=== PATIENT | female | born 1970 ===

== ENCOUNTER 2022-02-26 06:32 | Day surgery (SDC) | payer OTHER ==
[2022-02-21 12:03] LABS: Absolute Lymphocytes (CBC) 1.6 K/uL (0.7-4.9); Hematocrit 41.4 % (36.0-45.0); Lymphocytes % 24.1 % (15.3-44.8); MCV 97.2 fL (80-100); MPV 7.3 fL (7.6-11.3); RBC Red Blood Cell Count 4.26 M/uL (3.86-4.86)
[2022-02-21 12:11] LABS: Specific Gravity 1.015 (1.005-1.030); Urine Bilirubin NEGATIVE (Negative); Urine Blood Negative (Negative); Urine Clarity Clear (Clear); Urine Color Light-Yellow (Yellow); Urine Glucose NEGATIVE (Negative); Urine Protein NEGATIVE (Negative); Urine Urobilinogen Normal (Normal)
[2022-02-21 12:17] LABS: Potassium 3.8 mmol/L (3.5-5.1)
--- NOTE | 2022-02-21 12:17 | RAD REPORT ---
EXAM DESCRIPTION: Maryjo Ott (2 Views)02/21/2022 12:05 pm CLINICAL HISTORY: Preop for foot surgery. Hypertension COMPARISON: 2011 FINDINGS: The lungs appear clear of acute infiltrate. The heart is normal size IMPRESSION: No acute abnormalities displayed
--- NOTE | 2022-02-22 15:59 | EKG ---
Test Date: 2022-02-21 Test Time: 11:35:09 Erp Programmer: RUSSELL MEASUREMENT RESULTS: Intervals: Rate: 65 [place]: 142 QRSD: 78 QT: 416 QTc: 432 [place]: P: 27 [place]: 142 QRS: -21 T: 44 INTERPRETIVE STATEMENTS: Normal sinus rhythm Low voltage QRS Inferior infarct, age undetermined Cannot rule out Anterior infarct, age undetermined Abnormal ECG No previous ECG available for comparison Electronically Signed On 02-22-22 15:58:02 UI PROGRAMMER by Bethel Mancera
--- NOTE | 2022-02-25 12:00 | PREOPHP ---
Date of Admission: 02/26/2022 History Of Present Illness: This patient presented to my office with a chief complaint of a painful right big toe joint present for many months, throbbing in nature, moderate in severity, worse with ac tivity, improve with rest. The patient has modified her shoe gear, taken anti-inflammatories. The p atient has pain with or without shoe gear. The patient requests surgical management. Past Medical History: Includes hypertension, obesity, GERD, diverticulitis, thyroid disease. Current Medications: Include [place] Thyroid 90 mg, omeprazole 40 mg, clonazepam 0.5 mg, lisinopril 1 0 mg, hydrochlorothiazide 12.5 mg. Allergies: NKDA. Social History: Patient denies tobacco, minimal alcohol use. No IV drug use. Past Surgical History: Includes laparoscopic gastric banding, surgery to right ankle trauma, and div erticulitis procedures. Physical Examination: Vital Signs: The patient's weight 210 pounds, height 5 feet 6 inches. General Appearance: The patient is healthy, well developed, well nourished, well oriented x3. Vascular: Evaluation reveals dorsalis pedis and posterior tibial pulses to be 4/4 bilaterally. Capi llary refill time is less than 3 seconds to all toes. Temperature gradient is within normal limits. There is no claudication complaint, varicosities, or signs of DVT present bilaterally. There is +2 pitting edema of the right leg at the ankle and foot area. Musculoskeletal: Evaluation reveals semiflexible cavus foot deformity bilaterally. Subtalar joint s hows normal position bilaterally. There is forefoot supinatus with adductus bilaterally. There is m edial eminence of the first metatarsal head with range of motion to 80 degrees, right worse than the left, as far as medial eminence. There is hallux valgus noted bilaterally. Equinus is noted to be - 10 degrees right per goniometer measurement and 0 on the left per goniometer measurement. Lesser dig its are in normal alignment. Muscle knee and ankle assessment are in normal alignment, muscle streng th, and range of motion. There is no tenderness of the plantar fascia. No subcutaneous soft tissue masses are noted bilaterally. Skin: Evaluation reveals no rash, ulcer, tumor, or contracture bilaterally. Neurologic: Evaluation reveals deep tendon reflexes of the patella and Achilles to be 5/5 bilaterall y. Vibratory and sharp dull sensation within normal limits. Imaging: X-ray evaluation of the right foot shows bones well mineralized. No fractures are noted. There is inferior calcaneal spur present. There is a lateral deviation of the hallux and sesamoids w ith an increase in the intermetatarsal angle. The intermetatarsal angle is 12 degrees. Hallux abduc t angle is 19 degrees. Splay foot type is noted bilaterally with a short 1st and 5th metatarsal. Diagnoses: Hallux valgus, right foot, pain in right foot, congenital metatarsus adductus right foot. Recommendations: The recommended treatment is for a bunionectomy with first metatarsal osteotomy at the head and fixation will be used. The patient has been made aware of COVID-19 risk present in the community. Recommendations to follow CDC guidelines to prevent infection postoperatively which will complicate healing and increased risk of blood clots. The patient is dispensed a postoperative shoe for use after surgery. The patient has been educated on the use of cold therapy unit. Preop labs cummings ve been ordered. The patient understands risks, benefits, and alternatives of the above-mentioned pr ocedure including, but not limited to the risk of pain, swelling, numbness, stiffness, infection, non healing of skin or soft tissue, bone, recurrence of the deformity and/or need to remove fixation due to loosening. The patient is scheduled for surgery at [facility] on February 26, 2022. Preop labs have been ordered. Medical H and P will be completed by Anesthesia. The patient has been also dispensed a seal tight to keep the bandage dry postoperatively. RACHAEL/GLADIS Voice ID: [id number]
[2022-02-26] MEDS ORDERED: CEFAZOLIN SODIUM 1 GM/VIAL ONE (06:55)
[2022-02-26] MEDS ORDERED: Ringers Lactate 1,000 ML IV ONE (06:55)
[2022-02-26] MEDS ORDERED: MIDAZOLAM HCL 2 MG/2 ML INJ ONE (07:12)
[2022-02-26] MEDS ORDERED: propofoL 200 MG/20 ML VIAL IV ONE (07:12)
[2022-02-26] MEDS ORDERED: FENTANYL CITR 100 MCG/2 ML ONE ×2 (07:13→08:55)
[2022-02-26] MEDS ORDERED: LIDOCAINE 1% MPF 5 ML VIAL ONE (07:13)
[2022-02-26] MEDS ORDERED: KETOROLAC 30 MG/ML INJ ONE (07:37)
[2022-02-26] MEDS ORDERED: ONDANSETRON 4 MG/2 ML VIAL ONE (07:38)
[2022-02-26] MEDS: LIDOCAINE 1% MPF 30 ML VIAL ONE ×2 (07:59→08:00)
[2022-02-26] MEDS ORDERED: EPHEDRINE SULF 50 MG/ML VIAL ONE (08:17)
[2022-02-26 09:35] VITALS: O2SAT 99
[2022-02-26] MEDS ORDERED: HYDROCODONE/APAP 10/325 TAB ONE (10:04)
--- NOTE | 2022-02-26 10:27 | RAD REPORT ---
EXAM DESCRIPTION: RAD - Foot Right 2 View - 02/26/2022 9:29 am CLINICAL HISTORY: S/P BUNIONECTOMY COMPARISON: No comparisons FINDINGS: Postsurgical changes of a bunionectomy are noted first metatarsal head with a small screw present. Small posterior and moderate plantar calcaneal spur. Mild soft tissue swelling anteriorly.
[2022-02-26 10:35] VITALS: BP 97/58; TEMP 97.6
--- NOTE | 2022-02-26 19:15 | OP ---
Date of Procedure: 02/26/2022 Surgeon: Fili Gardner DPM Preoperative Diagnosis: Hallux valgus deformity, right foot. Postoperative Diagnosis: Hallux valgus deformity, right foot. Procedure: Bunionectomy with first metatarsal head osteotomy and 16 mm screw fixation. Anesthesia: Via local infiltration. Procedure In Detail: Patient was brought into the operating room, placed on the operating room table in supine position. Once adequate IV sedation was obtained, the patient was injected with a total o f 10 cc of 0.5% Marcaine plain. The patient was prepped and draped in usual sterile manner and the r ight extremity was elevated, Esmarch bandage was applied to exsanguinate the blood supply. Pneumatic ankle tourniquet was inflated to 250 mmHg and the Esmarch was removed. Procedure: Attention was then directed to the first MPJ of the right foot where a 5 cm dorsal linear incision was made overlying the first MPJ. The incision was deepened via sharp and blunt dissection down to the level of capsule. All neurologic structures were avoided. All bleeders were clamped an d bovied. An inverted L incision was made in the capsule of the first MPJ, dissected free from its b mann attachments. Upon doing this, a tophus was removed from the capsular tissue. No degeneration of the bone or cartilage was noted. The capsular tissue was freed from its bony attachments utilizing sharp dissection. The medial eminence was brought into view and resected utilizing an oscillating sa w. The first interspace was then approached and a lateral capsulotomy adducted tenotomy was performe d. The foot was then repositioned with the knee bent and an osteotomy was created in the head of the first metatarsal with the apex distal and the arms proximal in a V-shaped fashion. Utilizing the os cillating saw from medial to lateral, the osteotomy was performed and shifted laterally and impacted medially upon the shaft of the first metatarsal. The head was then fixated to the shaft utilizing a K-wire fixation temporarily utilizing the DJO headless screw set. The cannulated drill was then util ized down to the plantar cartilage, but not through. It was then measured 16 mm and then a countersi nk was then used to countersink the dorsal cortex. The screw was then placed over the wire utilizing the cannulated system and screwed into place, flushed to the bone. Excellent compression was seen i n bony position. The remaining medial eminence was removed utilizing the oscillating saw and smoothe d utilizing a rasp. All layers were flushed with copious amounts of sterile saline. A medial capsul orrhaphy was then performed with the toe held in a corrected position. Area was then flushed again a nd capsular tissue was reapproximated utilizing 2-0 Vicryl suture. Skin was then reapproximated util izing 4-0 Prolene horizontal mattress suture. The toe seemed to be in excellent rectus position with a range of motion to 80 degrees. The foot was then dressed with Adaptic, dry sterile gauze, dry jay rile Sheng, Kerlix, and cold therapy unit. The tourniquet was then released and capillary return was seen to be instantaneous to all digits. The patient was sent to recovery in satisfactory condition. RACHAEL/GLADIS Voice ID: [id number] Report ID: [id number]
--- NOTE | 2022-02-26 19:24 | DS ---
Date Of Surgery: 02/26/2022. Surgeon: Fili Gardner DPM Preoperative Diagnosis: Hallux valgus deformity, right foot. Postoperative Diagnosis: Hallux valgus deformity, right foot. Procedure: Bunionectomy with first metatarsal head osteotomy and screw fixation, 16 mm DJO headless screw. Hospital Course: The patient tolerated the procedure and anesthesia well. The patient was sent to [facility] in satisfactory condition and will be discharged per anesthesia guidelines from same-day surg shashank. Patient has been given a cold therapy unit with written postop instructions as well as full i tten postop instructions and emergency phone number. The patient has pain medication for postoperati ve discomfort. The patient will be followed in my office in 1 week for postoperative care. The yina ent may ambulate in a postop shoe, per instructions, a propulsive gait on the right foot. RACHAEL/GLADIS Voice ID: [id number] Report ID: [id number]
== END 2022-02-26 10:30 | disposition home or self-care (01) ==
LOC: OR 06:32
PROVIDERS: ATTEND Podiatrist
PROC: 0QSN04Z Reposition Right Metatarsal with Internal Fixation Device, Open Approach (ICD-10-PCS; principal; 2022-02-26 07:30)
DX: M20.11 Hallux valgus (acquired), right foot (principal); M21.611 Bunion of right foot; E11.9 Type 2 diabetes mellitus without complications; I10 Essential (primary) hypertension; K21.9 Gastro-esophageal reflux disease without esophagitis; E07.9 Disorder of thyroid, unspecified
CPT/HCPCS: 28296; 93005; 85025; 80048; 36415; 81025; 85610; 88300; 85730; 81003; 71046; 73620; J2704; J2001; J2250; J3010 ×2; J7120; J2405; J0690